=== PATIENT | female | born 1975 | race American Indian/Alaskan Native ===

== ENCOUNTER 2017-12-21 12:27 | Emergency (ER) | payer OTHER ==
[2017-12-21 12:45] VITALS: BP 117/88
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
[2017-12-21] MEDS ORDERED: MOTRIN PO ONE (15:19)
[2017-12-21] MEDS ORDERED: FLEXERIL PO ONE (15:20)
== END 2017-12-21 15:39 | disposition home or self-care (01) ==
LOC: ED 12:27
DX: M79.1 Myalgia (principal); M54.6 Pain in thoracic spine; V49.49XA Driver injured in collision with other motor vehicles in traffic accident, initial encounter; Y93.89 Activity, other specified; Y92.89 Other specified places as the place of occurrence of the external cause; Y99.8 Other external cause status
CPT/HCPCS: 99282

== ENCOUNTER 2021-02-16 12:19 | Emergency (ER) | payer OTHER, SELFPAY ==
[2021-02-16 12:35] VITALS: BP 147/89
[2021-02-16] MEDS ORDERED: ACETAMINOPHEN 325 MG TAB PO ONE (12:37)
--- NOTE | 2021-02-16 12:40 | Event Note ---
ED Screening Note ED Screening Note: Patient presents for cough that began 2 days ago States this morning when she woke up she felt chest pain described as a pressure and felt like someone was sitting on her chest Has associated shortness of breath she denies any Vomiting or diarrhea She has not been vaccinated for COVID-19 She is a non-smoker No past medical history No allergies to medications She denies any recent travel or known sick contacts This initial assessment/diagnostic orders/clinical plan/treatment(s) is/are subject to change based on patients health status, clinical progression and re- assessment by fellow clinical providers in the ED. Further treatment and workup at subsequent clinical providers discretion. Patient/guardian urged not to elope from the ED as their condition may be serious if not clinically assessed and managed. Initial orders include: Vitals with fever and tachycardia Sepsis was triggered This is likely due to COVID-19 she is not hypoxic or hypotensive at this time will hold on sepsis fluids at this time, as if this is due to COVID 19, large bolus fluids without dehydration/hypotension not recommended
--- NOTE | 2021-02-16 13:13 | XRay Report ---
CHEST 2 VIEWS INDICATION / CLINICAL INFORMATION: fever, cough, sob. COMPARISON: None available. FINDINGS: SUPPORT DEVICES: None. HEART / MEDIASTINUM: No significant abnormality. LUNGS / PLEURA: No significant pulmonary or pleural abnormality. No pneumothorax. ADDITIONAL FINDINGS: No significant additional findings. IMPRESSION: 1. No acute findings. Signer Name: Marv Pabon DO Signed: 02/16/2021 1:08 PM Workstation Name: [id number]
[2021-02-16 13:57] LABS: Alanine Aminotransferase 11 units/L (7-56); Albumin 4.2 g/dL (3.9-5); BUN/Creatinine Ratio 14; Blood Urea Nitrogen 11 mg/dL (7-17); Calcium 9.3 mg/dL (8.4-10.2); Hemolysis Index 10
[2021-02-16 14:01] LABS: Basophils % (Auto) 0.4 % (0.0-1.8); Eosinophils % (Auto) 0.1 % (0.0-4.3); Hematocrit 37.8 % (30.3-42.9); Hemoglobin 12.6 gm/dl (10.1-14.3); Lymphocytes # (Auto) 0.8 K/mm3 (1.2-5.4); Lymphocytes % (Auto) 14.1 % (13.4-35.0); Mean Corpuscular HGB Conc 33 % (30-34); Mean Corpuscular Volume 82 fl (79-97); Monocytes # (Auto) 0.4 K/mm3 (0.0-0.8); Monocytes % (Auto) 6.4 % (0.0-7.3); Platelet Count 220 K/mm3 (140-440); Red Blood Count 4.62 M/mm3 (3.65-5.03); Red Cell Distribution Width 13.7 % (13.2-15.2)
--- NOTE | 2021-02-16 14:49 | Emergency Department Report ---
- General Chief Complaint: Dyspnea/Respdistress Stated Complaint: SOB,BODYACHES FEVER CHESTPAIN Time Seen by Provider: 02/16/21 12:36 Source: patient Mode of arrival: Ambulatory Limitations: No Limitations - History of Present Illness Initial Comments: Patient is a 45-year-old female who presents emergency room for cough that began 2 days ago. she states this morning when she woke up she felt chest pain described as a pressure and felt like someone was sitting on her chest. she has associated shortness of breath. she states that she is also been having fatigue, fever, chills, generalized body aches. she denies any Vomiting or diarrhea. She has not been vaccinated for COVID-19. She is a non-smoker No past medical history. No allergies to medications. She denies any recent travel or known sick contacts - Related Data Previous Rx's Medication Instructions Recorded Last Taken Type Amoxicillin/K Clav Tab [Augmentin 1 tab PO BID #20 tablet 05/16/13 Unknown Rx 875MG] Hydrocodone Bit/Acetaminophen 1 each PO Q6H PRN #16 tablet 05/16/13 Unknown Rx [Lortab 10-500 mg] methOCARBAMOL [Robaxin] 750 mg PO BID #14 tab 05/16/13 Unknown Rx Ibuprofen [Motrin] 800 mg PO TID PRN #60 tablet 05/22/13 Unknown Rx Amoxicillin/K Clav Tab [Augmentin 1 tab PO Q12HR #20 tab 11/06/15 Unknown Rx 875 mg] Cyclobenzaprine [Flexeril] 10 mg PO TID PRN #10 tablet 12/21/17 Unknown Rx Ibuprofen [Motrin] 800 mg PO Q8HR PRN #20 tablet 12/21/17 Unknown Rx Allergies Allergy/AdvReac Type Severity Reaction Status Date / Time No Known Allergies Allergy Unverified 05/15/13 23:25 ED Review of Systems ROS: Stated complaint: SOB,BODYACHES FEVER CHESTPAIN Other details as noted in HPI Comment: All other systems reviewed and negative ED Past Medical Hx - Past Medical History Previous Medical History?: No - Surgical History Past Surgical History?: Yes Additional Surgical History: tubal ligation - Social History Smoking Status: Never Smoker Substance Use Type: None - Medications Home Medications: Home Medications Medication Instructions Recorded Confirmed Last Taken Type Amoxicillin/K Clav Tab [Augmentin 1 tab PO BID #20 tablet 05/16/13 Unknown Rx 875MG] Hydrocodone Bit/Acetaminophen 1 each PO Q6H PRN #16 tablet 05/16/13 Unknown Rx [Lortab 10-500 mg] methOCARBAMOL [Robaxin] 750 mg PO BID #14 tab 05/16/13 Unknown Rx Ibuprofen [Motrin] 800 mg PO TID PRN #60 tablet 05/22/13 Unknown Rx Amoxicillin/K Clav Tab [Augmentin 1 tab PO Q12HR #20 tab 11/06/15 Unknown Rx 875 mg] Cyclobenzaprine [Flexeril] 10 mg PO TID PRN #10 tablet 12/21/17 Unknown Rx Ibuprofen [Motrin] 800 mg PO Q8HR PRN #20 tablet 12/21/17 Unknown Rx ED Physical Exam - General Limitations: No Limitations General appearance: alert, in no apparent distress - Head Head exam: Present: atraumatic, normocephalic - Eye Eye exam: Present: normal appearance - ENT ENT exam: Present: mucous membranes moist - Respiratory Respiratory exam: Present: normal lung sounds bilaterally. Absent: respiratory distress, wheezes, rales, rhonchi, stridor, chest wall tenderness, accessory muscle use, decreased breath sounds, prolonged expiratory - Cardiovascular Cardiovascular Exam: Present: regular rate, normal rhythm, normal heart sounds. Absent: systolic murmur, diastolic murmur, rubs, gallop - Neurological Exam Neurological exam: Present: alert, oriented X3 - Psychiatric Psychiatric exam: Present: normal affect, normal mood - Skin Skin exam: Present: warm, dry, intact ED Course Vital Signs 02/16/21 02/16/21 02/16/21 12:29 12:35 14:46 Temperature 103.1 F H 100.0 F H Pulse Rate 114 H 100 H Respiratory 16 Rate Blood Pressure 147/89 O2 Sat by Pulse 97 98 Oximetry ED Medical Decision Making - Lab Data Result diagrams: 02/16/21 13:02 02/16/21 13:02 Lab Results 02/16/21 02/16/21 02/16/21 Range/Units 13:02 13:02 13:02 WBC 5.6 (4.5-11.0) K/mm3 RBC 4.62 (3.65-5.03) M/mm3 Hgb 12.6 (10.1-14.3) gm/dl Hct 37.8 (30.3-42.9) % MCV 82 (79-97) fl MCH 27 L (28-32) pg MCHC 33 (30-34) % RDW 13.7 (13.2-15.2) % Plt Count 220 (140-440) K/mm3 Lymph % (Auto) 14.1 (13.4-35.0) % [place] % (Auto) 6.4 (0.0-7.3) % Eos % (Auto) 0.1 (0.0-4.3) % Baso % (Auto) 0.4 (0.0-1.8) % Lymph # (Auto) 0.8 L (1.2-5.4) K/mm3 [place] # (Auto) 0.4 (0.0-0.8) K/mm3 Eos # (Auto) 0.0 (0.0-0.4) K/mm3 Baso # (Auto) 0.0 (0.0-0.1) K/mm3 Seg Neutrophils % 79.0 H (40.0-70.0) % Seg Neutrophils # 4.5 (1.8-7.7) K/mm3 Sodium 132 L (137-145) mmol/L Potassium 4.1 (3.6-5.0) mmol/L Chloride 93.7 L (98-107) mmol/L Carbon Dioxide 26 (22-30) mmol/L Anion Gap 16 mmol/L BUN 11 (7-17) mg/dL Creatinine 0.8 (0.6-1.2) mg/dL Estimated GFR > 60 ml/min BUN/Creatinine Ratio 14 % Glucose 97 (65-100) mg/dL Lactic Acid 1.20 (0.7-2.0) mmol/L Calcium 9.3 (8.4-10.2) mg/dL Total Bilirubin 0.40 (0.1-1.2) mg/dL AST 21 (5-40) units/L ALT 11 (7-56) units/L Alkaline Phosphatase 76 (35-129) units/L Troponin T < 0.010 (0.00-0.029) ng/mL Total Protein 7.8 (6.3-8.2) g/dL Albumin 4.2 (3.9-5) g/dL Albumin/Globulin Ratio 1.2 % Vital Signs 08/02/16/21 02/16/21 12:29 12:35 14:46 Temperature 103.1 F H 100.0 F H Pulse Rate 114 H 100 H Respiratory 16 Rate Blood Pressure 147/89 O2 Sat by Pulse 97 98 Oximetry - EKG Data EKG shows normal: sinus rhythm, axis, intervals, QRS complexes Rate: tachycardia (100 bpm) - EKG Data 02/16/21 14:47 no STEMI low voltage - Radiology Data Radiology results: report reviewed Ordering Physician: GRISELDA CASTILLO Date of Service: 02/16/21 Procedure(s): XR chest routine 2V Accession Number(s): [id number] cc: GRISELDA CASTILLO Fluoro Time In Minutes: CHEST 2 VIEWS INDICATION / CLINICAL INFORMATION: fever, cough, sob. COMPARISON: None available. FINDINGS: SUPPORT DEVICES: None. HEART / MEDIASTINUM: No significant abnormality. LUNGS / PLEURA: No significant pulmonary or pleural abnormality. No pneumothorax. ADDITIONAL FINDINGS: No significant additional findings. IMPRESSION: 1. No acute findings. Signer Name: Marv Pettit DO Signed: 02/16/2021 1:08 PM Workstation Name: [id number] Transcribed By: NS Dictated By: MARV PETTIT DO Electronically Authenticated By: MARV PETTIT DO Signed Date/Time: 02/16/211307 DD/ 07 TD/TT: - Medical Decision Making Patient is a 45-year-old female who presents emergency room for cough that began 2 days ago. she states this morning when she woke up she felt chest pain described as a pressure and felt like someone was sitting on her chest. she has associated shortness of breath. she states that she is also been having fatigue, fever, chills, generalized body aches. she denies any Vomiting or diarrhea. She has not been vaccinated for COVID-19. She is a non-smoker No past medical history. No allergies to medications. She denies any recent travel or known sick contacts. Initial vitals with fever and tachycardia which improved upon Tylenol administration. Patient has no hypoxia and she is able to maintain oxygen saturation 97 percent or greater on room air. Labs are stable. EKG with low voltage and heart rate of 100 bpm, otherwise stable. Chest x- ray: 1. No acute findings. Discussed case with Dr. Andres Balderas, ER attending who evaluated patient and advised symptoms likely related to viral URI and could be COVID-19, she discussed supportive care and symptomatic treatment with patient and strict return precautions, outpatient COVID-19 testing and quarantine. Advised patient Please increase your fluid intake over the next several days. May take Tylenol as needed for fever or body aches. May take vzec-hye-qmsdums cold symptom relief medication such as Mucinex or TheraFlu. Get plenty of rest. Follow-up with a primary care doctor for reexamination. Return to emergency room immediately for any new or worsening symptoms including but not limited to difficulty breathing, shortness of breath, severe chest pain, unable to tolerate by mouth intake, etc. Please self quarantine for 10 days from the onset of your symptoms. Please do not go out in public. If you are around others at home please wear a mask. If you need to cough or sneeze please do so in a napkin and immediately throw it away and immediately wash your hands. Wash your hands frequently. Wipe everything down. Recommend for you to get COVID-19 testing, may have this done at primary care doctor, health department, [facility], etc. Critical care attestation.: If time is entered above; I have spent that time in minutes in the direct care of this critically ill patient, excluding procedure time. ED Disposition Clinical Impression: Suspected COVID-19 virus infection URI (upper respiratory infection) Qualifiers: URI type: unspecified URI Qualified Code(s): J06.9 - Acute upper respiratory infection, unspecified Disposition: 01 HOME / SELF CARE / HOMELESS Is pt being admited?: No Does the pt Need Aspirin: No Condition: Stable Instructions: COVID-19, Viral Respiratory Infection Additional Instructions: Please increase your fluid intake over the next several days. May take Tylenol as needed for fever or body aches. May take oyeq-tdy-uyhbhfr cold symptom r elief medication such as Mucinex or TheraFlu. Get plenty of rest. Follow-up with a primary care doctor for reexamination. Return to emergency room immediately for any new or worsening symptoms including but not limited to difficulty breathing, shortness of breath, severe chest pain, unable to tolerate by mouth intake, etc. Please self quarantine for 10 days from the onset of your symptoms. Please do not go out in public. If you are around others at home please wear a mask. If you need to cough or sneeze please do so in a napkin and immediately throw it away and immediately wash your hands. Wash your hands frequently. Wipe everything down. Recommend for you to get COVID-19 testing, may have this done at primary care doctor, health department, [facility], etc. Referrals: KELLIE SHAHID MD [Staff Physician] - 2-3 Days [facility] [Provider Group] - 2-3 Days Time of Disposition: 14:47 Print Language: HUNGARIAN
--- NOTE | 2021-02-17 13:20 | Electrocardiograph Report ---
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
== END 2021-02-16 14:50 | disposition home or self-care (01) ==
LOC: ED 12:19
DX: J06.9 Acute upper respiratory infection, unspecified (principal); Z20.822 Contact with and (suspected) exposure to COVID-19; Z98.51 Tubal ligation status
CPT/HCPCS: 36415; 71046; 80053; 82140; 84484; 85025; 87040; 93005; 99284